=== PATIENT | male | born 1990 | race Caucasian/White ===

== ENCOUNTER 2017-01-20 16:36 | Emergency (ER) | payer BC ==
[~2017-01-20] VITALS: Ht 182.9 cm; Wt 79.4 kg
--- NOTE | ~2017-01-20 | CR282 ---
[facility] A Service of [facility] & [facility] RADIOLOGY TEXT RESULTS PATIENT: TIAGO BARAKAT LOCATION: SED : [birth year] UNIT #: [id number] AGE: [address]: Teresa Gambino APRN SEX: M ORDER DR: [id number] [address] [address] [id number] E MR#: [id number] Acc #: [id number] NAME: TIAGO BARAKAT : 1990 SEX: M STUDY DATE/TIME: 01/20/2017 17:57 UNIT: SED ROOM: STUDY DESCRIPTION: CR Wrist Min 3 View Rt Attending Physician: Teresa Gambino A.P.R.N. Ordering Physician: Teresa Hay A.P.R.N. Primary Care Physician: Pretty Mcbride M.D. MEDICAL IMAGING REPORT This report is preliminary unless electronic signature is present. EXAM Right wrist 3 views. 01/20/2017 HISTORY Right wrist pain for 2 weeks. No known injury. FINDINGS Wrist evaluation in multiple projections shows normal mineralization of the bony structures about the wrist and satisfactory articular relationship of the radius and ulna to the proximal carpal row and of the distal carpal segments to the metacarpal bases. There is no indication of fracture or dislocation, and no soft tissue radiopaque foreign body is present. No congenital defects are apparent. IMPRESSION Normal wrist. Dictated by... Shan Hinse M.D. THIS IS AN ELECTRONICALLY VERIFIED REPORT Shan Hines M.D. at 01/21/2017 7:19 AM ARELIS/howard TD: 01/21/2017 00:26 JOB #: [id number] MEDICAL IMAGING REPORT Page 1 of 1
[~2017-01-20 16:36] MED LIST: AMOXICILLIN PO; APIDRA INSULIN; APIDRA SOL100 UNIT/1; BACITRACIN30 GM TOP; HUMALOG100 U/M1; HUMALOG100 U/M2 SQ; HUMALOG100 U/ML SUBQ; KEFLEX500 MG PO; LANTUS100 UNITS/ SUBQ; PHENERGAN W/CO120 ML PO; ROBAXIN 750750 M1 PO; TOFRANIL PO; TYLENOL #3 PO; VASOTEC; VASOTEC PO; VASOTEC10 MG PO; VOLTAREN50 MG PO
== END 2017-01-20 18:51 | disposition home or self-care (01) ==
LOC: SED 16:36
DX: G56.01 Carpal tunnel syndrome, right upper limb (principal); E11.9 Type 2 diabetes mellitus without complications; I10 Essential (primary) hypertension; K21.9 Gastro-esophageal reflux disease without esophagitis; Z79.4 Long term (current) use of insulin
CPT/HCPCS: 29125; 73110; 99283